=== PATIENT | female | born 1955 | race Caucasian/White ===

== ENCOUNTER 2018-04-15 07:29 | Emergency (ER) | payer BC ==
--- NOTE | 2018-04-15 08:34 | ED ---
Respiratory - HPI Summary HPI Summary: Pt is a 62 y/o female who presents to the ED c/o back pain. She states shes had a cold for 2 weeks, consisting of mild cough, congestion, and occasional SOB. Pt now c/o constant, non-radiating back pain between her shoulder blades. She denies any fever, N/V, fatigue, or abdominal pain. She states was diagnosed with bronchitis within the past few weeks, but didnt take any antibiotics or steroids because she was afraid of the side effects. However, she did use an inhaler and Mucinex. Putting a hot water bottle on her back and using Ibuprofen help the pain, and lying down makes it worse. She is currently worried about PNA. Pt is a former smoker, and denies any current smoking. She denies getting respiratory infections often. - History of Current Complaint Chief Complaint: EDUpperRespComplaint Stated Complaint: BACK PAIN BETWEEN SHOULDER BLADES/HEART BURN/SOB Time Seen by Provider: 04/15/18 08:09 Hx Obtained From: Patient, Family/Gas Meter Reader - Onset/Duration: Gradual Onset, Lasting Weeks - 3, Still Present Timing: Constant Current Severity: Severe Pain Intensity: 10 Character: Cough (Nonproductive) Sputum Amount: None Aggravating Factor(s): Recumbent Position Alleviating Factor(s): OTC Medications - Ibuprofen, Other - Hot water bottle Associated Signs and Symptoms: SOB - Allergy/Home Medications Allergies/Adverse Reactions: Allergies Allergy/AdvReac Type Severity Reaction Status Date / Time No Known Allergies Allergy Verified 04/15/18 07:37 PMH/Surg Hx/FS Hx/Imm Hx Endocrine/Hematology History: Denies: Hx Diabetes Cardiovascular History: Denies: Hx Hypertension GI History: Reports: Hx Diverticulosis History: Reports: Hx Kidney Stones, Other Problems/Disorders - hx of stones Denies: Hx Renal Disease - Cancer History Hx Chemotherapy: No Hx Radiation Therapy: No - Surgical History Surgery Procedure, Year, and Place: w/ tubal Infectious Disease History: No Infectious Disease History: Denies: Hx Hepatitis, Hx of Known/Suspected MRSA, History Other Infectious Disease, Traveled Outside the [place] in Last 30 Days - Family History Known Family History: Negative: Cardiac Disease, Hypertension, Diabetes - Social History Alcohol Use: Rare Hx Substance Use: No Substance Use Type: Reports: None Hx Tobacco Use: Yes Smoking Status (MU): Former Smoker Type: Cigarettes Have You Smoked in the Last Year: Yes Review of Systems Negative: Fever, Fatigue Positive: Other - Congestion Positive: Shortness Of Breath, Cough Negative: Abdominal Pain, Vomiting, Nausea Positive: Myalgia - Back pain All Other Systems Reviewed And Are Negative: Yes Physical Exam - Summary Physical Exam Summary: Appearance: Well appearing, no pain distress Skin: warm, dry, reflects adequate perfusion Head/face: normal Eyes: EOMI, ZACKARY ENT: mucous membranes moist Neck: supple, non-tender Respiratory: bilateral course sounds L>R, clears with cough, no wheezes, breath sounds present Cardiovascular: RRR, pulses symmetrical Abdomen: non-tender, soft Bowel Sounds: present Musculoskeletal: normal, strength/ROM intact Neuro: normal, sensory motor intact, A&Ox3 Triage Information Reviewed: Yes Vital Signs On Initial Exam: Initial Vitals Temp Pulse Resp BP Pulse Ox 97.5 F 84 20 161/97 95 04/15/18 07:31 04/15/18 07:31 04/15/18 07:31 04/15/18 07:31 04/15/18 07:31 Vital Signs Reviewed: Yes Diagnostics - Vital Signs Vital Signs Temp Pulse Resp BP Pulse Ox 04/15/18 07:31 97.5 F 84 20 161/97 95 - Laboratory Lab Statement: Any lab studies that have been ordered have been reviewed, and results considered in the medical decision making process. - Radiology CXR Radiology Interpretation Completed By: Radiologist - HYPERINFLATION, CONSISTENT WITH COPD. NO ACTIVE CARDIOPULMONARY DISEASE. ED physician reviewed radiology report. Disposition - Course Course Of Treatment: Patient is an ex-smoker with chronically hoarse voice, upper respiratory symptoms and wheezing. No hypoxia or distress. Treat with albuterol, steroids and antibiotic. Controller medication to follow. This was previously prescribed by her doctor. She'll follow closely with her primary care physician. - Differential Dx - Cardiopulmonary Differential Diagnoses - Cardiopulmonary: Other - URI, COPD, CHF, pneumonia - Diagnoses Provider Diagnoses: COPD exacerbation, URI (upper respiratory infection) Discharge - Sign-Out/Discharge Documenting (check all that apply): Patient Departure - Discharge - Discharge Plan Condition: Improved Disposition: HOME Prescriptions: Albuterol HFA INHALER* [Ventolin HFA Inhaler*] 2 puff INH Q4H PRN #1 mdi PRN Reason: Sob/Wheezing Azithromyxin LEFTY (NF) [Z-Lefty (Zithromax) 250 mg tabs #6] 2 tab PO .TODAY, THEN 1 DAILY #6 tab Guaifenesin/Pseudo 600/60(NF) [Mucinex D 600/60 (NF)] 1 tab PO BID #10 tab predniSONE TAB* [Deltasone TAB*] 50 mg PO DAILY #4 tab Patient Education Materials: COPD (Chronic Obstructive Pulmonary Disease) (ED) Referrals: Kye Nelson MD [Primary Care Provider] - Additional Instructions: Humidifier when you sleep. Avoid smokers. Call your doctor today to schedule prompt follow-up in the next 2-4 days. Return with fever, difficulty breathing , increased pain in your back, worse, new symptoms or other concerns. Have your doctor recheck your blood pressure. - Billing Disposition and Condition Condition: IMPROVED Disposition: Home - Attestation Statements Document Initiated by Madhu: Yes Documenting Scribe: La Emery Provider For Whom Renee is Documenting (Include Credential): Vj Pfeiffer MD Scribe Attestation: La Richmond, scribed for Vj Pfeiffer MD on 04/15/18 at 1525. Scribe Documentation Reviewed: Yes Provider Attestation: The documentation as recorded by the La watkins accurately reflects the service I personally performed and the decisions made by me, Vj Pfeiffer MD
[2018-04-15 08:50] VITALS: BP 124/91
== END 2018-04-15 08:50 | disposition home or self-care (01) ==
LOC: ED 07:29
DX: J44.1 Chronic obstructive pulmonary disease with (acute) exacerbation (principal); J06.9 Acute upper respiratory infection, unspecified; Z87.891 Personal history of nicotine dependence
CPT/HCPCS: 71046; 99282

== ENCOUNTER 2019-02-11 09:48 | Emergency (ER) | payer BC ==
--- NOTE | 2019-02-11 10:25 | ED ---
Abdominal Pain/Female - HPI Summary HPI Summary: This patient is a 33 year old F presenting to [facility] with a chief complaint of constant LLQ abdominal pain since 3-4 days ago. Patient reports burning during urination, nausea, chronic constipation, anddarker urine than normal. Patient denies fever, diarrhea, vaginal discharge or bleeding. Pt has a PMHx of diverticulitis and kidney stones. Pt takes cholesterol medication. Per triage, the patient rates the pain 5/10 in severity. Medications reviewed. Allergies noted - History of Current Complaint Chief Complaint: EDAbdPain Stated Complaint: POSS KIDNEY STONES PER PT Time Seen by Provider: 02/11/19 10:15 Hx Obtained From: Patient Onset/Duration: Lasting Days, Still Present Timing: Days Severity Initially: Moderate Severity Currently: Moderate Pain Intensity: 5 Pain Scale Used: 0-10 Numeric Location: Discrete At: LLQ Radiates: No Aggravating Factor(s): Nothing Alleviating Factor(s): Nothing Associated Signs and Symptoms: Positive: Constipation, Urinary Symptoms, Nausea. Negative: Fever, Vaginal Bleeding, Vaginal Discharge, Diarrhea Allergies/Adverse Reactions: Allergies Allergy/AdvReac Type Severity Reaction Status Date / Time eye drops Allergy Unknown Uncoded 02/11/19 09:54 Reaction Details Home Medications: Home Medications Loratadine [Claritin] 10 mg PO DAILY PRN 02/11/19 [History Confirmed 02/11/19] PMH/Surg Hx/FS Hx/Imm Hx Endocrine/Hematology History: Denies: Hx Diabetes Cardiovascular History: Denies: Hx Hypertension GI History: Reports: Hx Diverticulosis History: Reports: Hx Kidney Stones, Other Problems/Disorders - hx of stones Denies: Hx Renal Disease - Cancer History Hx Chemotherapy: No Hx Radiation Therapy: No - Surgical History Surgery Procedure, Year, and Place: w/ tubal Infectious Disease History: No Infectious Disease History: Denies: Hx Hepatitis, Hx of Known/Suspected MRSA, History Other Infectious Disease, Traveled Outside the [place] in Last 30 Days - Family History Known Family History: Negative: Cardiac Disease, Hypertension, Diabetes - Social History Occupation: Employed Full-time Alcohol Use: Rare Hx Substance Use: No Substance Use Type: Reports: None Hx Tobacco Use: Yes Smoking Status (MU): Former Smoker Type: Cigarettes Have You Smoked in the Last Year: Yes Review of Systems Negative: Fever Positive: Abdominal Pain, Nausea, Other - Constipation. Negative: Diarrhea Positive: burning. Negative: discharge, other - neg : vaginal bleeding All Other Systems Reviewed And Are Negative: Yes Physical Exam - Summary Physical Exam Summary: Constitutional: Well-developed, Well-nourished, Alert. (-) Distressed Skin: Warm, Dry HENT: Normocephalic; Atraumatic Eyes: Conjunctiva normal Neck: Musculoskeletal ROM normal neck. (-) JVD, (-) Stridor, (-) Tracheal deviation Cardio: Rhythm regular, rate normal, Heart sounds normal; Intact distal pulses; The pedal pulses are 2+ and symmetric. Radial pulses are 2+ and symmetric. (-) Murmur Pulmonary/Chest wall: Effort normal. (-) Respiratory distress, (-) Wheezes, (-) Rales Abd: Soft, Lower left abdominal tenderness, (-) Distension, (-) Guarding, (-) Rebound Musculoskeletal: (-) Edema Lymph: (-) Cervical adenopathy Neuro: Alert, Oriented x3 Psych: Mood and affect Normal Triage Information Reviewed: Yes Vital Signs On Initial Exam: Initial Vitals Temp Pulse Resp BP Pulse Ox 97.4 F 84 18 122/99 95 02/11/19 09:52 02/11/19 09:52 02/11/19 09:52 02/11/19 09:52 02/11/19 09:52 Vital Signs Reviewed: Yes Diagnostics - Vital Signs Vital Signs Temp Pulse Resp BP Pulse Ox 02/11/19 09:52 97.4 F 84 18 122/99 95 - Laboratory Result Diagrams: 02/11/19 11:24 02/11/19 11:30 Lab Statement: Any lab studies that have been ordered have been reviewed, and results considered in the medical decision making process. - CT Abdomen/Pelvis CT CT Interpretation Completed By: Radiologist Summary of CT Findings: Abdomen/Pelvis CT reveals, per radiologist, IMPRESSION : DIVERTICULOSIS WITHOUT PERICOLONIC APPARENT CHANGE TO SUGGEST COLITIS. FATTY INFILTRATION OF LIVER. ATHEROSCLEROSIS. ED physician has reviewed this radiology report. Re-Evaluation - Re-Evaluation First Eval Re-Evaluation Time: 14:17 Comment: Discussed results and plan of care with pt. Abdominal Pain Fem Course/Dx - Course Course Of Treatment: Patient is here with mild left lower quadrant tenderness. Patient is overall well-appearing. Patient and normal labwork performed. Patient not have any signs of UTI or hematuria. Patient had negative CT scan for kidney stone or diverticulitis. - Diagnoses Provider Diagnoses: LLQ abdominal pain, Diverticulitis Discharge ED - Sign-Out/Discharge Documenting (check all that apply): Patient Departure - Discharge Patient Received Moderate/Deep Sedation with Procedure: No - Discharge Plan Condition: Stable Disposition: HOME Patient Education Materials: Diverticulitis (ED) Referrals: Nasim MALONEY,Bong Mitchell [Primary Care Provider] - As Soon As Possible Additional Instructions: PLEASE RETURN TO EMERGENCY DEPARTMENT FOR ANY FEVERS OR WORSENING SYMPTOMS. Please follow up with your primary care physician. Please make all follow-ups as soon as possible unless I advise you otherwise - Billing Disposition and Condition Condition: STABLE Disposition: Home - Attestation Statements Document Initiated by Madhu: Yes Documenting Scribe: Kassidy Koenig Provider For Whom Madhu is Documenting (Include Credential): Philip Landry MD Scribe Attestation: Kassidy Richmond, scribed for Philip Landry MD on 02/11/19 at 1834. Scribe Documentation Reviewed: Yes Provider Attestation: The documentation as recorded by the Kassidy watkins accurately reflects the service I personally performed and the decisions made by , Philip Landry MD Status of Scribe Document: Viewed
[2019-02-11 11:31] LABS: Urine Appearance Clear; Urine Bilirubin Negative (Negative); Urine Blood Negative (Negative); Urine Color Yellow; Urine Glucose Negative (Negative); Urine Ketones Negative (Negative); Urine Nitrite Negative (Negative); Urine Protein Negative (Negative); Urine Specific Gravity 1.014 (1.010-1.030); Urine Urobilinogen Negative (Negative)
[2019-02-11 11:44] LABS: Hematocrit 33 % (35-47); Hemoglobin 10.2 g/dL (12.0-16.0); Mean Corpuscular HGB Conc 31 g/dL (31-36); Mean Corpuscular Hemoglobin 22 pg (27-31); Mean Corpuscular Volume 70 fL (80-97); Mean Platelet Volume 7.3 fL (7.4-10.4); Platelet Count 303 10^3/uL (150-450); Red Blood Count 4.71 10^6 /uL (3.70-4.87); Red Cell Distribution Width 18 % (10-15); White Blood Count 7.9 10^3/uL (3.5-10.8)
[2019-02-11 11:57] LABS: Albumin 4.1 g/dL (3.2-5.2); Albumin/Globulin Ratio 2.3 (1-3); BUN/Creatinine Ratio 16.2 (8-20); Calcium 9.3 mg/dL (8.6-10.3); EGFR African American 95.3 (>60); EGFR Non-African American 78.8 (>60); Globulin 1.8 g/dL (2-4); Potassium 3.8 mmol/L (3.5-5.0); Total Bilirubin 0.5 mg/dL (0.2-1.0); Total Protein 5.9 g/dL (6.4-8.9)
[2019-02-11 12:19] LABS: ABS Basophils 0.1 10^3/ul (0-0.2); ABS Eosinophils 0.2 10^3/ul (0-0.6); ABS Lymphocytes 1.4 10^3/ul (1.0-4.8); ABS Monocytes 0.6 10^3/ul (0-0.8); ABS Neutrophils 5.6 10^3/ul (1.5-7.7); Eosinophil % 2.6 %; Lymphocyte % 17.8 %
[2019-02-11] MEDS ORDERED: Iohexol 300* (CONTRAST) 10 ML SDV IV ONE (12:40)
[2019-02-11 14:43] VITALS: BP 112/80
== END 2019-02-11 14:41 | disposition home or self-care (01) ==
LOC: ED 09:48
DX: K57.92 Diverticulitis of intestine, part unspecified, without perforation or abscess without bleeding (principal); K76.0 Fatty (change of) liver, not elsewhere classified; I70.0 Atherosclerosis of aorta; E78.00 Pure hypercholesterolemia, unspecified; Z87.891 Personal history of nicotine dependence; Z79.899 Other long term (current) drug therapy; Z88.8 Allergy status to other drugs, medicaments and biological substances
CPT/HCPCS: 36415; 74177; 80053; 81003; 83690; 85025; 99283; Q9967

== ENCOUNTER 2022-11-27 09:13 | Observation (INO) ==
[2022-11-27] MEDS ORDERED: Iodixanol (CONTRAST) 320 MG/ML 100 ML SDV IV ONE (09:57)
[2022-11-27 10:09] LABS: ABS Basophils 0.1 10^3/uL (0.0-0.1); ABS Eosinophils 0.1 10^3/uL (0.0-0.5); ABS Lymphocytes 0.8 10^3/uL (1.0-4.8); ABS Monocytes 0.4 10^3/uL (0.0-0.9); ABS Neutrophils 5.3 10^3/uL (1.5-7.6); Eosinophil % 0.9 %; Hematocrit 27.5 % (35-45); Hemoglobin 7.9 g/dL (11.5-14.3); Lymphocyte % 11.9 %; Mean Corpuscular Hemoglobin 17.8 pg (27-33); Mean Corpuscular Hgb Conc 28.7 g/dL (31-36); Mean Corpuscular Volume 61.9 fL (80-97); Mean Platelet Volume 6.8 fL (7.5-11.2); Platelet Count 418 10^3/uL (150-450); Red Blood Count 4.45 10^6/uL (3.63-4.92); Red Cell Distribution Width 19.3 % (12-17); White Blood Count 6.7 10^3/uL (3.8-11.8)
[2022-11-27 10:10] LABS: Nucleated Red Blood Cells % 0.1 /100 WBC (0.0-0.4)
[2022-11-27 10:17] LABS: Activated Partial Thrombo Time 29.3 seconds (26.0-38.0); INR 1.15 (0.88-1.18)
[2022-11-27 10:25] LABS: Albumin 4.6 g/dL (3.2-5.2); Albumin/Globulin Ratio 2.1 (1-3); Calcium 9.4 mg/dL (8.6-10.3); Creatinine, Serum 0.73 mg/dL (0.51-0.95); Globulin 2.2 g/dL (2-4); HDL Cholesterol 61.9 mg/dL; Potassium 4.1 mmol/L (3.5-5.0); Total Bilirubin 0.4 mg/dL (0.2-1.0); Total Protein 6.8 g/dL (6.4-8.9)
[2022-11-27 15:05] LABS: % Iron Saturation 3 % (15-55); .Transferrin 425 mg/dL (203-362); Iron < 20 ug/dL (50-212); Total Iron Binding Capacity 595 mcg/dL (250-450); Unsaturated Iron Binding 575 ug/dL
[2022-11-27] MEDS ORDERED: Ferric Gluconate IV 250 MG in NS 0.9% 250 ml 200 ML IVPB ONE (15:08)
[2022-11-27] MEDS: Mometasone/Formoter 100/5 MDI INH SCH (19:27)
[2022-11-28 06:23] VITALS: BP 113/62
[2022-11-28] MEDS: Mometasone/Formoter 100/5 MDI INH SCH (09:35)
== END 2022-11-28 09:00 | disposition home or self-care (01) ==
LOC: ED 09:13 → EDHOLD 09:13 → MEDTELE 12:42
PROVIDERS: ADMIT Internal Medicine; ATTEND Internal Medicine